=== PATIENT | female | born 1935 | race Caucasian/White ===

== ENCOUNTER 2021-02-09 15:09 | Emergency (ER) | payer MEDICARE, SELFPAY ==
[2021-02-09 15:10] VITALS: BP 134/72; PULSE 68; RESP 16; TEMP 35.6; O2SAT 93; BMI 27.6
[2021-02-09 15:13] VITALS: BP 134/72; PULSE 70; RESP 16; TEMP 35.6; O2SAT 93
--- NOTE | 2021-02-09 16:11 | EKG12_ITS ---
Test Reason : Blood Pressure : / mmHG Vent. Rate : 067 BPM Atrial Rate : 067 BPM P-R Int : 210 ms QRS Dur : 090 ms QT Int : 402 ms P-R-T Axes : 083 013 072 degrees QTc Int : 424 ms Sinus rhythm with 1st degree A-V block Septal infarct , age undetermined Abnormal ECG Confirmed by TATIANNA CHAU, BCECA ([id number]), avid editor TERE VO ([id number]) on 02/11/2021 9:44:47 AM Referred By: CLAYTON/RAMAN Confirmed By:BECCA CAMPUZANO MD
--- NOTE | 2021-02-09 16:13 | EDS_ITS ---
HPI History of Present Illness Chief Complaint: Weakness Informant: patient, spouse/S.O. and family Narrative Narrative: Patient presents with lightheadedness, sweating that occurred while in a car. Patient now admits that for the last day or 2 she just has not felt her best. She has had very low-grade nausea. She also has been having a nonproductive dry cough for almost a week. She is not short of breath. She has never had chest pain pressure or tightness. She has no abdominal pain. No diarrhea. Although she has had some mild nausea, she has never vomited. She has been able to eat and drink but her appetite has been down. Today she was at a family [employer]. She was in the air conditioning. When she left, she got into a car at about 130 that had no air conditioning. They did have the windows down. But she felt very hot and flushed. She felt li ghtheaded. This is what prompted arrival to the emergency department. She is feeling better now but still has some mild nausea. She is up-to-date on her Covid immunizations. No known exposures. Family members are not ill. Past medical history is positive for thyroid disease and high blood pressure. Medications reviewed No known drug allergies Prior surgeries are cataracts, colonoscopies, carpal tunnel. [facility] Medical History Hypertension Hypothyroidism Home Medications levothyroxine mcg PO DAILY 02/09/21 [History Last Taken Unknown] lisinopril mg PO DAILY 02/09/21 [History Last Taken Unknown] Allergy/AdvReac Type Severity Reaction Status Date / Time No Known Allergies Allergy Verified 02/09/21 15:12 Social History Smoking Status: Never smoker ROS ROS ED Constitutional Constitutional ED: Reports chills, subjective and sweats Eyes Eyes: Denies blurry vision ENT ENT ED: Denies rhinorrhea or sore throat Cardiovascular Cardiovascular: Denies chest pain, orthopnea, palpitations or racing heartbeat Respiratory/Chest Respiratory/Chest: Reports cough; Denies dyspnea, dyspnea on exertion, orthopnea or sputum Gastrointestinal Gastrointestinal: Reports nausea; Denies abdominal pain, constipation, diarrhea, melena or vomiting Genitourinary Genitourinary ED: Denies dysuria Musculoskeletal Musculoskeletal: Denies myalgias Integumentary Denies rash Neurologic Neurologic: Denies headache(s), paresthesias or weakness Endocrine Endocrinology: Denies polydipsia or polyuria Allergic/Immunologic Allergic/Immunologic ED: Denies urticaria EXAM Physical Exam Const Vital Signs: 02/09/21 15:10 02/09/21 15:13 02/09/21 15:43 Temperature 96.0 F L 96.0 F L Temperature Source Temporal Temporal Pulse Rate 68 70 Respiratory Rate 16 16 Respiratory Effort Normal Blood Pressure 134/72 H 134/72 H Blood Pressure Mean 92 92 Pulse Ox 93 93 Oxygen Delivery Method Room Air Room Air 02/09/21 17:09 02/09/21 20:04 Temperature Temperature Source Pulse Rate 77 71 Respiratory Rate 19 H 16 Respiratory Effort Blood Pressure 132/70 H 129/74 H Blood Pressure Mean 90 92 Pulse Ox 97 96 Oxygen Delivery Method Room Air Room Air Positive well nourished and well developed General Appearance ED: well developed and NAD HEENT Reports dry mucous membranes Negative for trauma or tenderness Mouth ED: Yes dry mucous membranes Mouth: dry mucous membranes Eyes EOMs intact bilaterally Neck supple Chest Wall inspection of chest normal Resp normal respiratory effort and clear to auscultation bilaterally Effort and Inspection: Negative for pain with movement Auscultation: Negative for rales, rhonchi, wheezes or diminished lung sounds Cardio regular rate and regular rhythm Cardio Narrative: Patient has a 1?2 out of 6 systolic murmur at right upper sternal border. GI normal to inspection, nondistended, normoactive bowel sounds, non-tender and non-distended Palpation: soft Back/Spine no CVA tenderness Extremity normal to inspection General Extremety ED: Negative for edema or tenderness General Extremity: Negative for edema Neuro oriented x3 Sensorium / Orientation: alert Psych mental status grossly normal Skin no rashes or lesions noted MDM MDM MDM Narrative Medical decision making narrative: Patient CBC, electrolytes, liver and urinalysis and troponin showed no acute process. I did repeat the troponin just because she cannot felt lightheaded. This is unchanged. Patient feels much better. She is gotten up and walked around the department. She had chuck vicky and feels much better. She would like to go home. I think there is a reasonable plan. I will write her for some Zofran in case she develops further nausea. I think some of her symptoms caused by being in the very hot car after some decreased p.o. intake for the last day or so. She will stay in air conditioned area. She will try to increase fluids. Lab Data Labs: Laboratory Results - last 24 hr 02/09/21 02/09/21 02/09/21 16:25 16:25 16:58 WBC 5.2 RBC 4.48 Hgb 12.9 Hct 39.1 MCV 87.3 MCH 28.8 MCHC 33.0 RDW Std Deviation 41.3 RDW Coeff of Doretha 13.0 Plt Count 204 MPV 9.8 Immature Gran % (Auto) 0.200 Neut % (Auto) 81.8 H Lymph % (Auto) 9.2 L Cecil % (Auto) 7.3 Eos % (Auto) 1.1 Baso % (Auto) 0.4 Absolute Neuts (auto) 4.3 Absolute Lymphs (auto) 0.48 L Nucleated RBC % 0 Differential Comment SCANNED Platelet Estimate ADEQUATE RBC Morphology NORM C+C Sodium 135 L Potassium 3.5 Chloride 100 Carbon Dioxide 27.0 Anion Gap 8 BUN 15 Creatinine 0.83 Estim Creat Clear Calc 43.57 Est GFR (MDRD) Af Amer 85 Est GFR (MDRD) Non-Af 70 BUN/Creatinine Ratio 18.2 Glucose 137 H Calcium 8.8 Total Bilirubin 0.70 AST 18 ALT 21 Alkaline Phosphatase 40 L Troponin I High Sens 24.6 Total Protein 7.1 Albumin 3.8 Globulin 3.3 Albumin/Globulin Ratio 1.2 Urine Color Yellow Urine Clarity Sl. Cloudy Urine pH 6.5 Ur Specific [place] 1.015 Urine Protein Negative Urine Glucose (UA) Normal Urine Ketones 50 H Urine Occult Blood 25 H Urine Nitrite Negative Urine Bilirubin Negative Urine Urobilinogen Normal Ur Leukocyte Esterase Negative Urine RBC 0-5 SEEN Urine WBC 0 SEEN Ur Squamous Epith Cells 0-5 SEEN Urine Bacteria 0 SEEN Urine Mucus 0 SEEN 02/09/21 18:30 WBC RBC Hgb Hct MCV MCH MCHC RDW Std Deviation RDW Coeff of Doretha Plt Count MPV Immature Gran % (Auto) Neut % (Auto) Lymph % (Auto) Cecil % (Auto) Eos % (Auto) Baso % (Auto) Absolute Neuts (auto) Absolute Lymphs (auto) Nucleated RBC % Differential Comment Platelet Estimate RBC Morphology Sodium Potassium Chloride Carbon Dioxide Anion Gap BUN Creatinine Estim Creat Clear Calc Est GFR (MDRD) Af Amer Est GFR (MDRD) Non-Af BUN/Creatinine Ratio Glucose Calcium Total Bilirubin AST ALT Alkaline Phosphatase Troponin I High Sens 25.9 Total Protein Albumin Globulin Albumin/Globulin Ratio Urine Color Urine Clarity Urine pH Ur Specific [place] Urine Protein Urine Glucose (UA) Urine Ketones Urine Occult Blood Urine Nitrite Urine Bilirubin Urine Urobilinogen Ur Leukocyte Esterase Urine RBC Urine WBC Ur Squamous Epith Cells Urine Bacteria Urine Mucus Radiography Diagnostic Testing: Radiology Impression Chest X-Ray 02/09/21 16:35 IMPRESSION: Nonacute portable x-ray examination of the chest. Electronically Signed: Delano Oliveira MD ([place]) at 16:51 EDT , Service support , Discharge Plan Triage Chief Complaint: Weakness ED Provider: Gabe Oliva Dx/Rx/DC Orders Clinical Impression: Episode of generalized weakness, Nausea Instructions: ED Weakness (Uncertain Cause) Prescriptions: No Action lisinopril 5 mg Tablet PO DAILY RF: 0 levothyroxine 50 mcg Capsule PO DAILY RF: 0 Primary Care Provider: Mirza Lo Referrals: Mirza Lo MD [Primary Care Provider] - 3-5 Days if not improving Disposition Disposition: Home, Self Care
[2021-02-09] MEDS: 0.9% Normal Saline 1,000 ML 1000 ML IV (16:23)
[2021-02-09] MEDS: Ondansetron 4 MG/2 ML Vial IV (16:23)
--- NOTE | 2021-02-09 16:35 | RAD_ITS ---
STUDY: X-RAY CHEST REASON FOR EXAM: Female, 85 years old. cough TECHNIQUE: AP COMPARISON: None. FINDINGS: EKG leads project over the chest. The lungs are clear and expanded. There is no demonstrated pleural abnormality. Normal size heart. Normal mediastinum and tiffany. Normal visualized pulmonary arteries. Normal visualized aortic arch and descending thoracic aorta. Normal visualized thoracic spine. Normal visualized ribs, clavicles, and shoulders. There is no demonstrated abnormality of the visualized soft tissue structures of the upper abdomen. RAD/Chest 1 View (Portable) IMPRESSION: Nonacute portable x-ray examination of the chest. Electronically Signed: Delano Oliveira MD ([place]) at 16:51 EDT , Service support ,
[2021-02-09 16:49] LABS: Absolute Lymphocyte Count 0.48 X10^3/uL (0.83-4.51); Absolute Neutrophil Count 4.3 X10^3/uL (2.0-7.7); Basophil# 0.02 X10^3/uL; Basophil% 0.4 % (0-1); Eosinophil# 0.06 X10^3/uL; Eosinophils% 1.1 % (0-5); Hematocrit 39.1 % (37-47); Hemoglobin 12.9 g/dL (12.0-15.0); Lymphocyte # 0.48 X10^3/ul (0.83-4.51); Lymphocyte % 9.2 % (19-41); Mean Corpuscular Hgb 28.8 pg (27.0-32.0); Mean Corpuscular Volume 87.3 fL (81-99); Mean Platelet Vol. 9.8 fl (6.2-12.0); Monocyte# 0.38 X10^3/uL; Monocyte% 7.3 % (0-10); NRBC Flagged by Analyzer 0 % (0-5); Neutrophil # 4.28 X10^3/uL (2.7-7.7); Neutrophil % 81.8 % (47-70); POSITIVE DIFFERENTIAL YES; Platelet Count 204 K/mm3 (150-450); RBC Distribution Width SD 41.3 fl (35.1-43.9); Red Blood Count 4.48 M/mm3 (4.2-5.4); White Blood Count 5.2 K/mm3 (4.4-11.0)
[2021-02-09 16:53] LABS: Differential Indicated SCAN CRITERIA MET
[2021-02-09 17:04] LABS: Bacteria 0 SEEN /hpf (None Seen); Mucous, Urine 0 SEEN /hpf (<or=2+); White Blood Cells 0 SEEN /hpf (0-5)
[2021-02-09 17:07] LABS: Color, Urine Yellow (Yellow); Glucose, Dipstick Normal (Normal); Ketone-Dipstick 50 mg/dl (Negative); Leukocyte Esterase-Dipstick Negative /ul (Negative); Nitrite-Dipstick Negative (Negative); Occult Blood-Urine 25 /ul (Negative); Protein-Dipstick Negative (Negative); Specific Gravity, Urine 1.015 (1.002-1.030); Urine Bilirubin Dipstick Negative (Negative); Urine Clarity Sl. Cloudy (Clear); Urine Urobilinogen Normal (Normal); Urine pH 6.5 (5.0 - 8.0)
[2021-02-09 17:09] VITALS: BP 132/70; PULSE 77; RESP 19; O2SAT 97
[2021-02-09 17:13] LABS: Red Blood Cells-Urine 0-5 SEEN /hpf (0-5); Squamous Epithelial Cells - UA 0-5 SEEN /hpf (5-10)
[2021-02-09 17:14] LABS: ALB/GLOB Ratio 1.2 RATIO (0.9-2.4); AST(SGOT) 18 U/L (15-37); Alanine Aminotransfer ALT/SGPT 21 U/L (13-56); Albumin, Serum 3.8 g/dL (3.2-5.0); Alkaline Phosphatase 40 U/L (45-117); Anion Gap 8 (5-15); BUN 15 mg/dL (7-18); BUN/Creat Ratio 18.2 RATIO (10-20); Calcium,Total 8.8 mg/dL (8.5-10.1); Chloride 100 mmol/L (98-107); Creatinine, Serum 0.83 mg/dL (0.55-1.02); EST Glomerular Filtration Rate 70 mL/min (>60); Est Glom Filt Rate - Afr Amer 85 mL/min (>60); Estimated Creatinine Clearance 43.57 ml/min; Globulin 3.3 g/dL (2.2-4.2); Glucose 137 mg/dL (74-106); Potassium 3.5 mmol/L (3.5-5.1); Protein, Total 7.1 g/dL (6.4-8.2); Sodium Level 135 mmol/L (136-145); Troponin-I HS 24.6 pg/mL (3.0-53.7)
[2021-02-09 18:25] LABS: Differential Comment SCANNED; Platelet Estimate ADEQUATE (ADEQ); Red Cell Morphology NORM C+C NORMAL (NORM C&C)
[2021-02-09 18:56] LABS: Troponin-I HS 25.9 pg/mL (3.0-53.7)
[2021-02-09 20:04] VITALS: BP 129/74; PULSE 71; RESP 16; O2SAT 95; O2SAT 96
[2021-02-09 21:08] VITALS: BP 121/73; PULSE 71; RESP 19; O2SAT 96
== END 2021-02-09 21:09 | disposition home or self-care (01) ==
PROVIDERS: Emergency Provider Emergency Medicine; PCP Family Medicine
DX: R53.1 Weakness (principal); R11.0 Nausea; I10 Essential (primary) hypertension; E03.9 Hypothyroidism, unspecified; Z79.899 Other long term (current) drug therapy
CPT/HCPCS: 71045; 80053; 81001; 84484; 85025; 87426; 93005; 96361; 96374; 99284; J7030; A4216; J2405